=== PATIENT | female | born 1945 | race Hispanic/Latino ===

== ENCOUNTER 2017-09-24 15:40 | Emergency (ER) | payer MEDICARE, OTHER ==
[2017-09-24 15:40] VITALS: BMI 32.4
[2017-09-24 15:56] VITALS: BP 128/74; PULSE 77; RESP 18; TEMP 98.6; O2SAT 98
--- NOTE | 2017-09-24 16:05 | ED PDOC ---
Arrival/HPI - General Chief Complaint: Lower Extremity Problem/Injury Time Seen by Provider: 09/24/17 15:48 Historian: Patient - History of Present Illness Narrative History of Present Illness (Text): 09/24/17 16:02 72yo female with PMhx of hypertension , anxiety who present with complaint of left knee pain. Patient states her left knee gave out, on her way back from the Chiropractor. states she didn't fell, but her knee buckled and she heard a "pop " sound. she reports pain with weight bearing. Denies back, any other complaint. Past Medical History - Provider Review Nursing Documentation Reviewed: Yes - Infectious Disease Hx of Infectious Diseases: None - Reproductive Menopause: Yes - Cardiac Hx Pacemaker: No - Neurological Hx Paralysis: No - Endocrine/Metabolic Hx Hypothyroidism: Yes - Hematological/Oncological Hx Blood Transfusions: No - Musculoskeletal/Rheumatological Hx Musculoskeletal Disorders: No - Psychiatric Hx Emotional Abuse: No Hx Physical Abuse: No Hx Substance Use: No - Anesthesia Hx Anesthesia Reactions: Yes (N/V S/P GB SX) Hx Malignant Hyperthermia: No - Suicidal Assessment Feels Threatened In Home Enviroment: No Family/Social History - Physician Review Nursing Documentation Reviewed: Yes Family/Social History: Unknown Family HX Smoking Status: Unknown If Ever Smoked Hx Alcohol Use: Yes (ON OCCASION) Frequency of alcohol use: Socially Hx Substance Use: No Allergies/Home Meds Allergies/Adverse Reactions: Allergies tramadol Allergy (Verified 04/15/17 09:57) RASH Home Medications: Home Meds Medication Instructions Recorded Confirmed Esomeprazole Magnesium [Nexium] 1 tab PO DAILY 12/30/13 09/24/17 Ezetimibe [Zetia] 10 mg PO HS 04/30/16 09/24/17 Levothyroxine [Synthroid] 100 mcg PO QAM 04/30/16 09/24/17 Sertraline [Zoloft] 50 mg PO HS 04/30/16 09/24/17 Calcium Carbonate/Vitamin D3 500 mg PO DAILY 04/15/17 09/24/17 [Calcium 500 + Vit D Caplet] Cholecalciferol (Vitamin D3) 2,000 unit PO DAILY 04/15/17 09/24/17 [Vitamin D3] Review of Systems - Physician Review All systems were reviewed & negative as marked: Yes - Review of Systems Constitutional: Normal Eyes: Normal ENT: Normal Respiratory: Normal Cardiovascular: Normal Gastrointestinal: Normal Genitourinary Female: Normal Musculoskeletal: Arthralgias (LEft knee) Skin: Normal Neurological: Normal Endocrine: Normal Hemo/Lymphatic: Normal Psychiatric: Normal Physical Exam Vital Signs Reviewed: Yes Vital Signs Temp Pulse Resp BP Pulse Ox 09/24/17 15:52 98.6 F 77 18 128/74 98 Temperature: Afebrile Blood Pressure: Normal Pulse: Regular Respiratory Rate: Normal Appearance: Positive for: Well-Appearing, Non-Toxic, Comfortable Pain Distress: None Mental Status: Positive for: Alert and Oriented X 3 - Systems Exam Head: Present: Atraumatic, Normocephalic Pupils: Present: PERRL Extroacular Muscles: Present: EOMI Conjunctiva: Present: Normal Mouth: Present: Moist Mucous Membranes Neck: Present: Normal Range of Motion Respiratory/Chest: Present: Clear to Auscultation, Good Air Exchange. No: Respiratory Distress, Accessory Muscle Use Cardiovascular: Present: Regular Rate and Rhythm, Normal S1, S2. No: Murmurs Abdomen: Present: Normal Bowel Sounds. No: Tenderness, Distention, Peritoneal Signs Back: Present: Normal Inspection Upper Extremity: Present: Normal Inspection. No: Cyanosis, Edema Lower Extremity: Present: NORMAL PULSES, Normal ROM (With pain on flexion), Neurovascularly Intact. No: Edema, CALF TENDERNESS, Tenderness, Swelling, Deformity Neurological: Present: GCS=15, CN II-XII Intact, Speech Normal Skin: Present: Warm, Dry, Normal Color. 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 No acute fracture/dislocation - RAD Interpretation Radiology Orders: 09/24/17 15:59 KNEE WITH PATELLA LEFT 3 VIEW [RAD] Stat - Medication Orders Current Medication Orders: Discontinued Medications Ketorolac Tromethamine (Toradol) 60 mg IM STAT STA Stop: 09/24/17 16:00 Last Admin: 09/24/17 16:47 Dose: 60 mg [facility] Pain Assessment Document 09/24/17 16:47 OCS (Rec: 09/24/17 16:49 OCS [id number]) Pain Reassessment Is this a pain reassessment? Yes Sleep Is patient sleeping during reassessment? No Presence of Pain Presence of Pain Yes Pain Scale Used Pain Scale Used Numeric Location Left, Right or Bilateral Left Pain Location Body Site Knee Description Description Constant Intensity of Pain at present 4 Pain Behavior Rubbing Site Aggravating Factors ADL's IM Administration Charges Document 09/24/17 16:47 OCS (Rec: 09/24/17 16:49 OCS [id number]) Injection Site MAR Injection Site Left Arm Charges for Administration # of IM Administrations 1 Disposition/Present on Arrival - Present on Arrival Any Indicators Present on Arrival: No History of DVT/PE: No History of Uncontrolled Diabetes: No Urinary Catheter: No History of Decub. Ulcer: No History Surgical Site Infection Following: None - Disposition Have Diagnosis and Disposition been Completed?: Yes Diagnosis: Knee pain Disposition: HOME/ ROUTINE Disposition Time: 16:40 Patient Plan: Discharge Patient Problems: Current Active Problems Problem Status Onset Knee pain Acute Condition: STABLE Discharge Instructions (ExitCare): Knee Pain (DC) Additional Instructions: Follow up with your Orthopedist Return to ED for new symptoms Referrals: Kimberlyn Go, [Primary Care Provider] - Follow up with primary Charles Izaguirre MD [Staff Provider] - Follow up with primary Forms: [employer] (Romansh)
--- NOTE | 2017-09-24 16:29 | RAD ---
PROCEDURE: Left Knee Radiographs. HISTORY: Pain. COMPARISON: None. FINDINGS: BONES: There is no acute displaced fracture or bone destruction. Bone alignment is normal. There is periarticular bone demineralization. JOINTS: There is mild tricompartmental degenerative osteoarthrosis with reduced joint spaces, marginal spurring and tibial spiking, worse in the medial compartment. JOINT EFFUSION: There is a small suprapatellar joint effusion. OTHER FINDINGS: None. IMPRESSION: No acute fracture or dislocation. Mild tricompartmental degenerative osteoarthrosis, worse in the medial compartment.
== END 2017-09-24 17:12 | disposition home or self-care (01) ==
LOC: ED 15:40
DX: M25.562 Pain in left knee (principal); I10 Essential (primary) hypertension
CPT/HCPCS: 73562; 96372; 99283; J1885